=== PATIENT | female | born 1960 | race Caucasian/White ===

== ENCOUNTER 2025-02-22 14:24 | Inpatient (IN) | payer OTHER ==
[2025-02-22 16:15] LABS: #Basophils Less than 0.03 10x3/uL (0.0-0.2); #Eosinophils Less than 0.03 10x3/uL (0.0-0.7); #Monocytes 0.79 10x3/uL (0.11-0.59); #Neutrophils 6.56 10x3/uL (1.40-6.50); %Basophils 0.1 % (0.0-1.0); %Eosinophils 0.0 % (0.0-10.0); %Lymphocytes 8.7 % (21.0-51.0); %Monocytes 9.8 % (0.0-10.0); %Neutrophils 81.2 % (42.0-75.0); Hematocrit 36.5 % (36.0-47.0); Hemoglobin 11.8 g/dL (12.0-16.0); Mean Corpuscular Hemoglobin 35.2 pg (27.0-31.0); Mean Corpuscular Volume 109.0 fL (78.0-98.0); Platelet Count 149 10x3/uL (130-400); Red Blood Cell (RBC) Count 3.35 mill/uL (4.20-5.40); White Blood Cell (WBC) Count 8.08 10x3/uL (4.8-10.8)
[2025-02-22 16:38] LABS: ALT (SGPT) 36 U/L (Less than 34); AST (SGOT) 71 U/L (11-34); Albumin 2.1 g/dL (3.1-4.5); Alkaline Phosphatase 312 U/L (40-110); Anion Gap 18 mmol/L (10-20); BUN (Urea Nitrogen) 53 mg/dL (9.8-20.1); Bilirubin, Total 1.1 mg/dL (0.3-1.2); Calc. Creatinine Clearance 0 mL/min (70-130); Calcium 8.3 mg/dL (7.8-10.44); Carbon Dioxide 13 mmol/L (23-31); Chloride 105 mmol/L (98-107); Globulin 3.7 g/dL (2.4-3.5); Glucose 74 mg/dL (80-115); Potassium 3.2 mmol/L (3.5-5.1); Sodium 133 mmol/L (136-145)
[2025-02-22] MEDS ORDERED: Glucagon 1 MG/ML KIT IM PRN (21:58)
[2025-02-22] MEDS ORDERED: Dextrose 50% Abboject 50 ML SYRINGE SLOW IVP PRN (21:58)
[2025-02-22] MEDS ORDERED: Melatonin 3 MG TAB PO PRN (21:58)
[2025-02-22] MEDS ORDERED: Guaifenesin DM 100-10/5 ML UDCUP PO PRN (21:58)
[2025-02-22] MEDS ORDERED: Ondansetron PF 4 MG/2 ML Vial IVP PRN (21:58)
[2025-02-22] MEDS ORDERED: Senokot S 8.6-50 MG TAB PO PRN (21:58)
[2025-02-22] MEDS ORDERED: Electrolyte Replacement Protocol 1 EACH FS PRN (22:00)
[2025-02-22] MEDS ORDERED: Cefepime 2 GM VIAL ONE (22:47)
[2025-02-23 00:53] LABS: Hematocrit 33.9 % (36.0-47.0); Hemoglobin 11.7 g/dL (12.0-16.0); Platelet Count 154 10x3/uL (130-400)
[2025-02-23 04:37] LABS: #Basophils Less than 0.03 10x3/uL (0.0-0.2); #Eosinophils 0.12 10x3/uL (0.0-0.7); #Monocytes 0.93 10x3/uL (0.11-0.59); #Neutrophils 6.59 10x3/uL (1.40-6.50); %Basophils 0.1 % (0.0-1.0); %Eosinophils 1.4 % (0.0-10.0); %Lymphocytes 12.7 % (21.0-51.0); %Monocytes 10.5 % (0.0-10.0); %Neutrophils 74.5 % (42.0-75.0); Hematocrit 32.9 % (36.0-47.0); Hemoglobin 10.8 g/dL (12.0-16.0); Mean Corpuscular Hemoglobin 34.3 pg (27.0-31.0); Mean Corpuscular Volume 104.4 fL (78.0-98.0); Platelet Count 148 10x3/uL (130-400); Red Blood Cell (RBC) Count 3.15 mill/uL (4.20-5.40); White Blood Cell (WBC) Count 8.84 10x3/uL (4.8-10.8)
[2025-02-23 04:51] LABS: ALT (SGPT) 38 U/L (Less than 34); AST (SGOT) 73 U/L (11-34); Albumin 1.8 g/dL (3.1-4.5); Alkaline Phosphatase 307 U/L (40-110); Anion Gap 19 mmol/L (10-20); BUN (Urea Nitrogen) 59 mg/dL (9.8-20.1); Bilirubin, Total 1.2 mg/dL (0.3-1.2); Calc. Creatinine Clearance 36 mL/min (70-130); Calcium 7.2 mg/dL (7.8-10.44); Carbon Dioxide 15 mmol/L (23-31); Chloride 107 mmol/L (98-107); Globulin 3.0 g/dL (2.4-3.5); Glucose 92 mg/dL (80-115); Potassium 2.9 mmol/L (3.5-5.1); Sodium 138 mmol/L (136-145); Vancomycin, Random 32.7 ug/mL (See Comment)
[2025-02-23] MEDS ORDERED: Vancomycin 1 GM in Premix 1 BAG IVPB SCH (09:00)
[2025-02-23] MEDS: Vancomycin (BATCH) 2.5 GM in Premix 1 BAG IVPB SCH (09:16)
[2025-02-23] MEDS: Heparin 10,000 UNITS/ 10 ML VIAL SLOW IVP SCH (09:17)
[2025-02-23] MEDS: Bupropion 150 MG SR.TAB PO SCH (09:18)
[2025-02-23] MEDS: Acetaminophen 325 MG TAB PO SCH (09:18)
[2025-02-23] MEDS: Albumin 25% 25 GM (100 mL) BOT IVPB SCH ×2 (12:29→17:08)
[2025-02-23 13:22] LABS: Potassium 3.3 mmol/L (3.5-5.1)
[2025-02-23] MEDS: Furosemide 40 MG (4 mL) VIAL SLOW IVP SCH ×3 (13:55→17:07)
[2025-02-23 19:05] LABS: Legionella Urinary Ag Negative (Negative); Strep pneumo Urine Ag NEGATIVE (NEGATIVE)
[2025-02-23] MEDS ORDERED: Vancomycin HCl 500 MG in NaCl 0.9% 100 ML IV SCH (21:00)
[2025-02-23] MEDS: Insulin Glargine 30 UNITS/0.3 ML VIAL SC SCH (21:11)
[2025-02-23] MEDS: Heparin 5,000 UNITS/ML VIAL SC SCH (21:28)
[2025-02-23] MEDS: Vancomycin 1 GM in Premix 1 BAG IVPB SCH (21:41)
[2025-02-24 03:21] LABS: Base Excess (BEa) -12.5 mEq/L (-2.0 to +3.0); CO2 Tension 32.3 mmHg (35.0-45.0); Calcium, Ionized (arterial) 1.06 mmol/L (1.12-1.30); Hematocrit-ABG 34 % (36.0-47.0); Hemoglobin (Hb) 11.6 g/dL (12.0-16.0); O2 Tension (PaO2), arterial 64.1 mmHg (> 80.0); Potassium - ABG Lab 4.00 mmol/L (3.70-5.30); pH, Arterial 7.244 (7.35-7.45)
[2025-02-24 03:22] LABS: ALV-art Gradient 608.525 mmHg (0-20); Actual Bicarbonate (HCO3a) 13.7 mEq/L (22-28); Puncture Site Left Radial artery
[2025-02-24] MEDS: Sodium Bicarb 50 MEQ/50 ML Abboject 8.4% SYRINGE IVP SCH ×2 (03:43→04:16)
[2025-02-24 03:48] LABS: #Basophils Less than 0.03 10x3/uL (0.0-0.2); #Eosinophils Less than 0.03 10x3/uL (0.0-0.7); #Monocytes 0.82 10x3/uL (0.11-0.59); #Neutrophils 6.66 10x3/uL (1.40-6.50); %Basophils 0.1 % (0.0-1.0); %Eosinophils 0.1 % (0.0-10.0); %Lymphocytes 6.9 % (21.0-51.0); %Monocytes 10.1 % (0.0-10.0); %Neutrophils 82.1 % (42.0-75.0); Hematocrit 31.0 % (36.0-47.0); Hemoglobin 10.5 g/dL (12.0-16.0); Mean Corpuscular Hemoglobin 35.1 pg (27.0-31.0); Mean Corpuscular Volume 103.7 fL (78.0-98.0); Platelet Count 140 10x3/uL (130-400); Red Blood Cell (RBC) Count 2.99 mill/uL (4.20-5.40); White Blood Cell (WBC) Count 8.12 10x3/uL (4.8-10.8)
[2025-02-24 04:06] LABS: Vancomycin, Random 25.0 ug/mL (See Comment)
[2025-02-24 04:07] LABS: ALT (SGPT) 35 U/L (Less than 34); AST (SGOT) 61 U/L (11-34); Albumin 2.5 g/dL (3.1-4.5); Alkaline Phosphatase 297 U/L (40-110); Anion Gap 20 mmol/L (10-20); BUN (Urea Nitrogen) 54 mg/dL (9.8-20.1); Bilirubin, Total 1.5 mg/dL (0.3-1.2); Calc. Creatinine Clearance 0 mL/min (70-130); Calcium 7.7 mg/dL (7.8-10.44); Carbon Dioxide 13 mmol/L (23-31); Chloride 107 mmol/L (98-107); Globulin 2.7 g/dL (2.4-3.5); Glucose 114 mg/dL (80-115); Potassium 4.2 mmol/L (3.5-5.1); Sodium 136 mmol/L (136-145)
[2025-02-24] MEDS: Ventilator Sedation Protocol 1 EACH FS ONE (04:52)
[2025-02-24] MEDS: NOREPINEPHRINE 8 MG/250 ML-D5W 250 ML ONE (04:55)
[2025-02-24] MEDS ORDERED: Propofol BOLUS 1,000 MG/100 ML VIAL IV PRN (05:00)
[2025-02-24] MEDS ORDERED: Fentanyl BOLUS 100 ML IVPB PRN (05:00)
[2025-02-24] MEDS ORDERED: DISCONTINUE PREVIOUS NARCOTIC PAIN MEDICATIONS AND BENZODIAZEPINES FS SCH (05:00)
[2025-02-24] MEDS ORDERED: NOREPINEPHRINE 8 MG/250 ML-D5W 250 ML IVPB SCH (05:00)
[2025-02-24] MEDS: Etomidate 40 MG (20 mL) VIAL IVP SCH (05:01)
[2025-02-24] MEDS: Rocuronium Bromide 10 MG/ML (10ML VIAL) IVP SCH (05:02)
[2025-02-24 08:09] LABS: Actual Bicarbonate (HCO3a) 15.5 mEq/L (22-28); Base Excess (BEa) -9.8 mEq/L (-2.0 to +3.0); CO2 Tension 32.4 mmHg (35.0-45.0); Calcium, Ionized (arterial) 1.06 mmol/L (1.12-1.30); Hematocrit-ABG 34 % (36.0-47.0); Hemoglobin (Hb) 11.7 g/dL (12.0-16.0); O2 Tension (PaO2), arterial 167.5 mmHg (> 80.0); Potassium - ABG Lab 3.69 mmol/L (3.70-5.30); pH, Arterial 7.298 (7.35-7.45)
[2025-02-24 08:13] LABS: ALV-art Gradient 505.000 mmHg (0-20); Puncture Site Left Radial artery
[2025-02-24 09:07] VITALS: BMI 43.8
[2025-02-24] MEDS ORDERED: Vancomycin Dose by Levels Sliding Scale (Wt > 99) FS SCH (13:30)
[2025-02-24] MEDS: Albumin 25% 25 GM (100 mL) BOT IVPB SCH (13:39)
[2025-02-24 22:37] LABS: Hematocrit 27.3 % (36.0-47.0); Hemoglobin 9.3 g/dL (12.0-16.0); Platelet Count 127 10x3/uL (130-400)
[2025-02-25 04:41] LABS: #Basophils Less than 0.03 10x3/uL (0.0-0.2); #Eosinophils Less than 0.03 10x3/uL (0.0-0.7); #Monocytes 0.33 10x3/uL (0.11-0.59); #Neutrophils 5.28 10x3/uL (1.40-6.50); %Basophils 0.2 % (0.0-1.0); %Eosinophils 0.0 % (0.0-10.0); %Lymphocytes 6.4 % (21.0-51.0); %Monocytes 5.5 % (0.0-10.0); %Neutrophils 87.2 % (42.0-75.0); Hematocrit 27.5 % (36.0-47.0); Hemoglobin 9.4 g/dL (12.0-16.0); Mean Corpuscular Hemoglobin 35.1 pg (27.0-31.0); Mean Corpuscular Volume 102.6 fL (78.0-98.0); Platelet Count 110 10x3/uL (130-400); Red Blood Cell (RBC) Count 2.68 mill/uL (4.20-5.40); White Blood Cell (WBC) Count 6.05 10x3/uL (4.8-10.8)
[2025-02-25 05:38] LABS: Vancomycin, Random 20.7 ug/mL (See Comment)
[2025-02-25 05:41] LABS: ALT (SGPT) 24 U/L (Less than 34); AST (SGOT) 39 U/L (11-34); Albumin 2.2 g/dL (3.1-4.5); Alkaline Phosphatase 236 U/L (40-110); Anion Gap 17 mmol/L (10-20); BUN (Urea Nitrogen) 61 mg/dL (9.8-20.1); Bilirubin, Total 1.2 mg/dL (0.3-1.2); Calc. Creatinine Clearance 40 mL/min (70-130); Calcium 7.8 mg/dL (7.8-10.44); Carbon Dioxide 15 mmol/L (23-31); Chloride 108 mmol/L (98-107); Globulin 2.8 g/dL (2.4-3.5); Glucose 113 mg/dL (80-115); Potassium 3.5 mmol/L (3.5-5.1); Sodium 136 mmol/L (136-145)
[2025-02-25 08:44] LABS: Base Excess (BEa) -9.6 mEq/L (-2.0 to +3.0); CO2 Tension 25.3 mmHg (35.0-45.0); Calcium, Ionized (arterial) 1.07 mmol/L (1.12-1.30); Hematocrit-ABG 31 % (36.0-47.0); Hemoglobin (Hb) 10.7 g/dL (12.0-16.0); O2 Tension (PaO2), arterial 80.7 mmHg (> 80.0); Potassium - ABG Lab 3.43 mmol/L (3.70-5.30); pH, Arterial 7.368 (7.35-7.45)
[2025-02-25] MEDS: Enoxaparin 30 MG (0.3 mL) SYRINGE SC SCH (09:11)
[2025-02-25] MEDS: Pantoprazole 40 MG VIAL IVP SCH (09:43)
[2025-02-25] MEDS: Sodium Bicarbonate 70 MEQ in Dextrose 5% in Water 1,000 ML IV SCH (10:41)
[2025-02-25] MEDS: Albumin 25% 25 GM (100 mL) BOT IVPB SCH (12:00)
[2025-02-25 13:05] LABS: RBC Count-Automated (BF) 1044 /cu.mm; WBC/Nucleated-Auto (BF) 91 /cu.mm
[2025-02-25 14:11] LABS: BF Segmented Neutrophils 89 %; Cell Count Non Hematic 7 %
[2025-02-26 04:09] LABS: Vancomycin, Trough 19.9 ug/mL
[2025-02-26 04:12] LABS: ALT (SGPT) 21 U/L (Less than 34); AST (SGOT) 33 U/L (11-34); Albumin 2.8 g/dL (3.1-4.5); Alkaline Phosphatase 213 U/L (40-110); Anion Gap 20 mmol/L (10-20); BUN (Urea Nitrogen) 70 mg/dL (9.8-20.1); Bilirubin, Total 1.3 mg/dL (0.3-1.2); Calc. Creatinine Clearance 38 mL/min (70-130); Calcium 7.7 mg/dL (7.8-10.44); Carbon Dioxide 15 mmol/L (23-31); Chloride 106 mmol/L (98-107); Globulin 2.5 g/dL (2.4-3.5); Glucose 166 mg/dL (80-115); Potassium 3.4 mmol/L (3.5-5.1); Sodium 138 mmol/L (136-145)
[2025-02-26 06:37] LABS: #Basophils Less than 0.03 10x3/uL (0.0-0.2); #Eosinophils Less than 0.03 10x3/uL (0.0-0.7); #Monocytes 0.57 10x3/uL (0.11-0.59); #Neutrophils 7.16 10x3/uL (1.40-6.50); %Basophils 0.1 % (0.0-1.0); %Eosinophils 0.0 % (0.0-10.0); %Lymphocytes 6.0 % (21.0-51.0); %Monocytes 6.9 % (0.0-10.0); %Neutrophils 86.4 % (42.0-75.0); Hematocrit 25.3 % (36.0-47.0); Hemoglobin 8.7 g/dL (12.0-16.0); Mean Corpuscular Hemoglobin 35.4 pg (27.0-31.0); Mean Corpuscular Volume 102.8 fL (78.0-98.0); Platelet Count 97 10x3/uL (130-400); Red Blood Cell (RBC) Count 2.46 mill/uL (4.20-5.40); White Blood Cell (WBC) Count 8.29 10x3/uL (4.8-10.8)
[2025-02-26 08:16] LABS: Actual Bicarbonate (HCO3a) 15.8 mEq/L (22-28); Base Excess (BEa) -7.7 mEq/L (-2.0 to +3.0); CO2 Tension 25.7 mmHg (35.0-45.0); Calcium, Ionized (arterial) 1.01 mmol/L (1.12-1.30); Hematocrit-ABG 28 % (36.0-47.0); Hemoglobin (Hb) 9.5 g/dL (12.0-16.0); O2 Tension (PaO2), arterial 102.9 mmHg (> 80.0); Potassium - ABG Lab 3.33 mmol/L (3.70-5.30); pH, Arterial 7.407 (7.35-7.45)
[2025-02-26] MEDS: Vancomycin HCl 750 MG in Sodium Chloride 0.9% 250 ML 250 ML IVPB SCH (08:21)
[2025-02-26 09:02] LABS: Bacteria/HPF None Seen HPF (None Seen); Glucose, Urine (Dipstick) 70 mg/dL (Negative); Leukocyte Negative Leu/uL (Negative); Protein, Urine (Dipstick) 200 mg/dL (Neg-Trace); RBC/HPF 21-50 HPF (0-3); Specific Gravity, Urine 1.017 (1.002-1.036); WBC/HPF 0-3 HPF (0-3)
[2025-02-26] MEDS: Albumin 25% 25 GM (100 mL) BOT IVPB SCH (14:12)
[2025-02-26 23:19] LABS: Hematocrit 27.7 % (36.0-47.0); Hemoglobin 9.2 g/dL (12.0-16.0); Platelet Count 100 10x3/uL (130-400)
[2025-02-27 05:33] LABS: Hematocrit 27.1 % (36.0-47.0); Hemoglobin 9.0 g/dL (12.0-16.0); Mean Corpuscular Hemoglobin 34.7 pg (27.0-31.0); Mean Corpuscular Volume 104.6 fL (78.0-98.0); Platelet Count 99 10x3/uL (130-400); Red Blood Cell (RBC) Count 2.59 mill/uL (4.20-5.40); White Blood Cell (WBC) Count 10.77 10x3/uL (4.8-10.8)
[2025-02-27 05:55] LABS: ALT (SGPT) 25 U/L (Less than 34); AST (SGOT) 47 U/L (11-34); Albumin 3.4 g/dL (3.1-4.5); Alkaline Phosphatase 192 U/L (40-110); Anion Gap 14 mmol/L (10-20); BUN (Urea Nitrogen) 75 mg/dL (9.8-20.1); Bilirubin, Total 1.6 mg/dL (0.3-1.2); Calc. Creatinine Clearance 44 mL/min (70-130); Calcium 7.9 mg/dL (7.8-10.44); Carbon Dioxide 19 mmol/L (23-31); Chloride 103 mmol/L (98-107); Globulin 2.0 g/dL (2.4-3.5); Glucose 253 mg/dL (80-115); Potassium 3.1 mmol/L (3.5-5.1); Sodium 133 mmol/L (136-145)
[2025-02-27 06:04] LABS: Anisocytosis SLIGHT = 6-15 cells HPF (0-5); Macrocytosis SLIGHT = 6-15 cells HPF (0-5); Nucleated RBC (Manual Ct) 11 % (0); Platelet Adequacy Comment Platelets Decreased; Polychromasia SLIGHT = 2-3 cells HPF (0-2); Target Cells SLIGHT = 2-5 cells HPF (0-1)
[2025-02-27 06:49] LABS: Actual Bicarbonate (HCO3a) 17.2 mEq/L (22-28); Base Excess (BEa) -7.8 mEq/L (-2.0 to +3.0); CO2 Tension 33.0 mmHg (35.0-45.0); Calcium, Ionized (arterial) 1.09 mmol/L (1.12-1.30); Hematocrit-ABG 29 % (36.0-47.0); Hemoglobin (Hb) 10.0 g/dL (12.0-16.0); O2 Tension (PaO2), arterial 95.8 mmHg (> 80.0); Potassium - ABG Lab 3.17 mmol/L (3.70-5.30); pH, Arterial 7.335 (7.35-7.45)
[2025-02-27 06:51] LABS: ALV-art Gradient 290.750 mmHg (0-20); Puncture Site Right Radial artery
[2025-02-27 08:35] LABS: Vancomycin, Trough 19.4 ug/mL
[2025-02-27] MEDS: Potassium Chloride 40 MEQ in Premix 1 BAG IVPB SCH (08:45)
[2025-02-27] MEDS: Furosemide 40 MG (4 mL) VIAL SLOW IVP SCH (08:45)
[2025-02-27] MEDS: Metoclopramide HCl 10 MG (2 mL) VIAL IVP SCH (08:47)
[2025-02-27] MEDS: Albumin 25% 25 GM (100 mL) BOT IVPB SCH (13:03)
[2025-02-28 04:35] LABS: #Basophils Less than 0.03 10x3/uL (0.0-0.2); #Eosinophils Less than 0.03 10x3/uL (0.0-0.7); #Monocytes 1.02 10x3/uL (0.11-0.59); #Neutrophils 10.72 10x3/uL (1.40-6.50); %Basophils 0.2 % (0.0-1.0); %Eosinophils 0.0 % (0.0-10.0); %Lymphocytes 4.5 % (21.0-51.0); %Monocytes 8.0 % (0.0-10.0); %Neutrophils 84.4 % (42.0-75.0); Hematocrit 26.6 % (36.0-47.0); Hemoglobin 8.9 g/dL (12.0-16.0); Mean Corpuscular Hemoglobin 34.8 pg (27.0-31.0); Mean Corpuscular Volume 103.9 fL (78.0-98.0); Platelet Count 82 10x3/uL (130-400); Red Blood Cell (RBC) Count 2.56 mill/uL (4.20-5.40); White Blood Cell (WBC) Count 12.70 10x3/uL (4.8-10.8)
[2025-02-28 04:48] LABS: Anion Gap 18 mmol/L (10-20); BUN (Urea Nitrogen) 82 mg/dL (9.8-20.1); Calc. Creatinine Clearance 46 mL/min (70-130); Calcium 8.4 mg/dL (7.8-10.44); Carbon Dioxide 19 mmol/L (23-31); Chloride 103 mmol/L (98-107); Glucose 223 mg/dL (80-115); Potassium 3.5 mmol/L (3.5-5.1); Sodium 136 mmol/L (136-145)
[2025-02-28 07:40] LABS: Actual Bicarbonate (HCO3a) 18.6 mEq/L (22-28); Base Excess (BEa) -5.6 mEq/L (-2.0 to +3.0); CO2 Tension 32.8 mmHg (35.0-45.0); Calcium, Ionized (arterial) 1.07 mmol/L (1.12-1.30); Hematocrit-ABG 40 % (36.0-47.0); Hemoglobin (Hb) 13.6 g/dL (12.0-16.0); O2 Tension (PaO2), arterial 75.4 mmHg (> 80.0); Potassium - ABG Lab 3.25 mmol/L (3.70-5.30); pH, Arterial 7.372 (7.35-7.45)
[2025-02-28 07:49] LABS: ALV-art Gradient 204.450 mmHg (0-20); Puncture Site Right Radial artery
[2025-02-28] MEDS: Lactulose 20 GM (30 mL) UDCUP PER TUBE SCH (11:10)
[2025-02-28] MEDS: Albumin 25% 25 GM (100 mL) BOT IVPB SCH (11:11)
[2025-02-28 13:49] LABS: Actual Bicarbonate (HCO3a) 14.2 mEq/L (22-28)
[2025-02-28 22:59] LABS: Hematocrit 26.9 % (36.0-47.0); Hemoglobin 9.1 g/dL (12.0-16.0); Platelet Count 86 10x3/uL (130-400)
[2025-03-01 04:27] LABS: Hematocrit 26.2 % (36.0-47.0); Hemoglobin 8.8 g/dL (12.0-16.0); Mean Corpuscular Hemoglobin 35.1 pg (27.0-31.0); Mean Corpuscular Volume 104.4 fL (78.0-98.0); Platelet Count 82 10x3/uL (130-400); Red Blood Cell (RBC) Count 2.51 mill/uL (4.20-5.40); White Blood Cell (WBC) Count 14.68 10x3/uL (4.8-10.8)
[2025-03-01 04:34] LABS: Anion Gap 17 mmol/L (10-20); BUN (Urea Nitrogen) 89 mg/dL (9.8-20.1); Calc. Creatinine Clearance 53 mL/min (70-130); Calcium 8.2 mg/dL (7.8-10.44); Carbon Dioxide 19 mmol/L (23-31); Chloride 103 mmol/L (98-107); Glucose 293 mg/dL (80-115); Potassium 3.4 mmol/L (3.5-5.1); Sodium 136 mmol/L (136-145)
[2025-03-01 04:51] LABS: Anisocytosis SLIGHT = 6-15 cells HPF (0-5); Macrocytosis SLIGHT = 6-15 cells HPF (0-5); Nucleated RBC (Manual Ct) 10 % (0); Platelet Adequacy Comment Platelets Decreased; Polychromasia SLIGHT = 2-3 cells HPF (0-2); Target Cells SLIGHT = 2-5 cells HPF (0-1)
[2025-03-01] MEDS ORDERED: Electrolyte Replacement Protocol 1 EACH FS ONE (08:36)
[2025-03-01] MEDS: Potassium Chloride 40 MEQ in Premix 1 BAG IVPB SCH (08:53)
[2025-03-01] MEDS: Insulin Glargine 30 UNITS/0.3 ML VIAL SC SCH ×2 (08:54→22:14)
[2025-03-01] MEDS ORDERED: Acetaminophen 325 MG TAB PO PRN (09:20)
[2025-03-01] MEDS: Furosemide 40 MG (4 mL) VIAL SLOW IVP SCH ×2 (09:46→16:47)
[2025-03-01] MEDS: Polyvinyl Alcohol 1.4%/Povidone 0.6% Opth Drops EA EYE PRN (09:46)
[2025-03-01] MEDS: MINERAL OIL/WHITE PETROLATUM 3.5 GM TUBE EA EYE SCH (22:14)
[2025-03-02 03:55] LABS: Hematocrit 27.9 % (36.0-47.0); Hemoglobin 9.4 g/dL (12.0-16.0); Mean Corpuscular Hemoglobin 35.5 pg (27.0-31.0); Mean Corpuscular Volume 105.3 fL (78.0-98.0); Platelet Count 84 10x3/uL (130-400); Red Blood Cell (RBC) Count 2.65 mill/uL (4.20-5.40); White Blood Cell (WBC) Count 20.11 10x3/uL (4.8-10.8)
[2025-03-02 03:59] LABS: Anion Gap 15 mmol/L (10-20); BUN (Urea Nitrogen) 99 mg/dL (9.8-20.1); Calc. Creatinine Clearance 62 mL/min (70-130); Calcium 8.3 mg/dL (7.8-10.44); Carbon Dioxide 19 mmol/L (23-31); Chloride 105 mmol/L (98-107); Glucose 282 mg/dL (80-115); Potassium 4.1 mmol/L (3.5-5.1); Sodium 135 mmol/L (136-145)
[2025-03-02 04:38] LABS: Macrocytosis SLIGHT = 6-15 cells HPF (0-5); Nucleated RBC (Manual Ct) 18 % (0); Platelet Adequacy Comment Platelets Decreased; Polychromasia SLIGHT = 2-3 cells HPF (0-2); Schistocytes SLIGHT = 2-5 cells HPF (0-1); Smudge Cells 4.8 %; Target Cells SLIGHT = 2-5 cells HPF (0-1)
[2025-03-02] MEDS ORDERED: Lactulose 20 GM (30 mL) UDCUP PO PRN (09:36)
[2025-03-02] MEDS: Insulin Glargine 30 UNITS/0.3 ML VIAL SC SCH (09:50)
[2025-03-02] MEDS: Senokot S 8.6-50 MG TAB PO SCH (22:03)
[2025-03-02 23:02] LABS: Hematocrit 31.0 % (36.0-47.0); Hemoglobin 10.5 g/dL (12.0-16.0); Platelet Count 91 10x3/uL (130-400)
[2025-03-03 05:18] LABS: Hematocrit 32.4 % (36.0-47.0); Hemoglobin 10.9 g/dL (12.0-16.0); Mean Corpuscular Hemoglobin 35.3 pg (27.0-31.0); Mean Corpuscular Volume 104.9 fL (78.0-98.0); Platelet Count 82 10x3/uL (130-400); Red Blood Cell (RBC) Count 3.09 mill/uL (4.20-5.40); White Blood Cell (WBC) Count 25.81 10x3/uL (4.8-10.8)
[2025-03-03 05:45] LABS: Anion Gap 18 mmol/L (10-20); Calc. Creatinine Clearance 64 mL/min (70-130); Calcium 8.5 mg/dL (7.8-10.44); Carbon Dioxide 20 mmol/L (23-31); Chloride 106 mmol/L (98-107); Glucose 259 mg/dL (80-115); Potassium 4.5 mmol/L (3.5-5.1); Sodium 139 mmol/L (136-145)
[2025-03-03 05:53] LABS: Anisocytosis MARKED = >30 cells HPF (0-5); Macrocytosis SLIGHT = 6-15 cells HPF (0-5); Nucleated RBC (Manual Ct) 25 % (0); Platelet Adequacy Comment Platelets Decreased; Polychromasia SLIGHT = 2-3 cells HPF (0-2); Target Cells SLIGHT = 2-5 cells HPF (0-1)
[2025-03-03 06:10] LABS: BUN (Urea Nitrogen) 127 mg/dL (9.8-20.1)
[2025-03-03] MEDS: Insulin Glargine 30 UNITS/0.3 ML VIAL SC SCH (09:15)
[2025-03-03] MEDS: hydrALAZINE 20 MG/ML VIAL SLOW IVP PRN (10:55)
[2025-03-03 12:10] VITALS: BMI 47.8
[2025-03-03] MEDS: Albumin 25% 25 GM (100 mL) BOT IVPB SCH (12:21)
[2025-03-03] MEDS ORDERED: Glycopyrrolate 0.4 MG/ 2 ML VIAL SLOW IVP PRN (15:03)
[2025-03-03 19:34] VITALS: BP 151/73; TEMP 97.9
[2025-03-03] MEDS ORDERED: Insulin Glargine 30 UNITS/0.3 ML VIAL SC SCH (21:00)
[2025-03-04] MEDS ORDERED: Insulin Glargine 30 UNITS/0.3 ML VIAL SC SCH (09:00)
== END 2025-03-03 23:05 | disposition expired | DRG 870 ==
LOC: ERS 14:24 → ERHOLD 20:39 → PCU 02-23 03:21 → CCU 02-24 04:20 → T4-B 03-03 18:28
PROVIDERS: ADMIT Internal Medicine; ATTEND Internal Medicine
PROC: 30233J1 Transfusion of Nonautologous Serum Albumin into Peripheral Vein, Percutaneous Approach (ICD-10-PCS; 2025-02-23)
PROC: 05HY33Z Insertion of Infusion Device into Upper Vein, Percutaneous Approach (ICD-10-PCS; 2025-02-23)
PROC: 3E033XZ Introduction of Vasopressor into Peripheral Vein, Percutaneous Approach (ICD-10-PCS; 2025-02-24)
PROC: 5A1955Z Respiratory Ventilation, Greater than 96 Consecutive Hours (ICD-10-PCS; 2025-02-24)
PROC: 0BH17EZ Insertion of Endotracheal Airway into Trachea, Via Natural or Artificial Opening (ICD-10-PCS; 2025-02-24)
PROC: 4A133R1 Monitoring of Arterial Saturation, Peripheral, Percutaneous Approach (ICD-10-PCS; 2025-02-24)
PROC: 0T9B70Z Drainage of Bladder with Drainage Device, Via Natural or Artificial Opening (ICD-10-PCS; 2025-02-24)
PROC: 0DH67UZ Insertion of Feeding Device into Stomach, Via Natural or Artificial Opening (ICD-10-PCS; 2025-02-24)
PROC: 5A09357 Assistance with Respiratory Ventilation, Less than 24 Consecutive Hours, Continuous Positive Airway Pressure (ICD-10-PCS; 2025-02-24)
PROC: 0B9D8ZX Drainage of Right Middle Lung Lobe, Via Natural or Artificial Opening Endoscopic, Diagnostic (ICD-10-PCS; principal; 2025-02-25)
PROC: 3E03329 Introduction of Other Anti-infective into Peripheral Vein, Percutaneous Approach (ICD-10-PCS; 2025-02-25)
PROC: 02HV33Z Insertion of Infusion Device into Superior Vena Cava, Percutaneous Approach (ICD-10-PCS; 2025-03-01)
PROC: XX20X89 Monitoring of Brain Electrical Activity, Computer-aided Detection and Notification, New Technology Group 9 (ICD-10-PCS; 2025-03-03)
DX: A41.9 Sepsis, unspecified organism (principal); G93.41 Metabolic encephalopathy; I21.A1 Myocardial infarction type 2; J18.9 Pneumonia, unspecified organism; I50.33 Acute on chronic diastolic (congestive) heart failure; J80 Acute respiratory distress syndrome; N17.9 Acute kidney failure, unspecified; I13.0 Hypertensive heart and chronic kidney disease with heart failure and stage 1 through stage 4 chronic kidney disease, or unspecified chronic kidney disease; E87.21 Acute metabolic acidosis; Z68.42 Body mass index [BMI] 45.0-49.9, adult; D84.9 Immunodeficiency, unspecified; C78.7 Secondary malignant neoplasm of liver and intrahepatic bile duct; C78.89 Secondary malignant neoplasm of other digestive organs; C56.2 Malignant neoplasm of left ovary; C79.31 Secondary malignant neoplasm of brain; R18.0 Malignant ascites; Z66 Do not resuscitate; Z51.5 Encounter for palliative care; E86.0 Dehydration; E03.9 Hypothyroidism, unspecified; E11.22 Type 2 diabetes mellitus with diabetic chronic kidney disease; E66.01 Morbid (severe) obesity due to excess calories; F32.A Depression, unspecified; K21.9 Gastro-esophageal reflux disease without esophagitis; D63.0 Anemia in neoplastic disease; R45.1 Restlessness and agitation; G89.29 Other chronic pain; E88.09 Other disorders of plasma-protein metabolism, not elsewhere classified; E78.00 Pure hypercholesterolemia, unspecified; D50.9 Iron deficiency anemia, unspecified; E87.6 Hypokalemia; E11.42 Type 2 diabetes mellitus with diabetic polyneuropathy; L89.151 Pressure ulcer of sacral region, stage 1; D69.6 Thrombocytopenia, unspecified; N18.30 Chronic kidney disease, stage 3 unspecified; Z90.710 Acquired absence of both cervix and uterus; Z98.890 Other specified postprocedural states; Z90.49 Acquired absence of other specified parts of digestive tract; Z79.899 Other long term (current) drug therapy; Z87.891 Personal history of nicotine dependence; Z79.890 Hormone replacement therapy; Z79.84 Long term (current) use of oral hypoglycemic drugs; Z86.718 Personal history of other venous thrombosis and embolism; Z88.2 Allergy status to sulfonamides; Z91.048 Other nonmedicinal substance allergy status; Z78.1 Physical restraint status
CPT/HCPCS: 36415; 36416; 36600; 71045; 71250; 74018; 74176; 76770; 78451; 80048; 80053; 80202; 81001; 82805; 83605; 83880; 84145; 84484; 85014; 85018; 85025; 85049; 85060; 85730; 87040; 87070; 87081; 87102; 87205; 87206; 87400; 87426; 87449; 87899; 88112; 88305; 88312; 89051; 93005; 93306; 94002; 94003; 94660; 96361; 96365; 96366; 96368; 96374; A9540; J0360; J0692; J1644; J1650; J1815; J1940; J2060; J2250; J2270; J2470; J2704; J2765; J2919; J3373; J3480; J7050; J7070; P9047